=== PATIENT | female | born 1995 | race Caucasian/White ===

== ENCOUNTER 2019-10-30 06:35 | Inpatient (IN) ==
[2019-10-30] MEDS ORDERED: D5 1/2 NS 1000 ML 1,000 ML IV ONE (06:40)
[2019-10-30] MEDS ORDERED: BETADINE SOLN ONE (06:40)
[2019-10-30] MEDS ORDERED: PITOCIN ONE ×2 (06:40→13:45)
[2019-10-30] MEDS ORDERED: D5 1/2 NS 1L W PITOCIN 20 UNITS/L 20 UNITS/1,000 ML BAG IV ONE (06:41)
[2019-10-30] MEDS ORDERED: D5LR 1L W PITOCIN 10 UNITS/L 10 UNITS/1,000 ML BAG IV ONE (06:41)
[2019-10-30] MEDS ORDERED: MORPHINE SULFATE INJ 2 MG INJ IVP PRN (07:29)
[2019-10-30] MEDS ORDERED: REGLAN INJ 10 MG VIAL IVP PRN ×3 (07:29→15:05)
[2019-10-30] MEDS ORDERED: D5LR 1L W PITOCIN 10 UNITS/L 10 UNITS/1,000 ML BAG IV PRN (07:29)
[2019-10-30] MEDS ORDERED: PITOCIN IVP ONE (07:29)
[2019-10-30] MEDS ORDERED: PHENERGAN INJ 25 MG IM PRN ×3 (07:29→17:25)
[2019-10-30] MEDS ORDERED: STADOL INJ IVP PRN (07:34)
[2019-10-30] MEDS ORDERED: D5 1/2 NS 1000 ML 1,000 ML IV SCH (08:00)
[2019-10-30] MEDS ORDERED: VERSED ONE (10:00)
[2019-10-30] MEDS ORDERED: DILAUDID INJ ONE (13:20)
[2019-10-30] MEDS ORDERED: ANCEF 1 GRAM IV PREMIX* 1 G/50 ML BAG IV ONE (13:24)
[2019-10-30] MEDS ORDERED: LR 1000 ML IV 1,000 ML IV ONE ×2 (13:43→21:52)
[2019-10-30] MEDS ORDERED: EPHEDRINE SULFATE INJ ONE (13:45)
[2019-10-30] MEDS ORDERED: HEMABATE IM ONE (14:18)
[2019-10-30] MEDS ORDERED: BENADRYL INJ 50 MG VIAL IVP PRN ×2 (15:03→15:05)
[2019-10-30] MEDS ORDERED: ZOFRAN INJ 4 MG VIAL IVP PRN ×3 (15:03→21:31)
[2019-10-30] MEDS ORDERED: DILAUDID INJ IVP PRN (15:03)
[2019-10-30] MEDS ORDERED: NARCAN INJ IVP PRN (15:05)
[2019-10-30] MEDS ORDERED: PERCOCET TAB 5/325 MG PO PRN (15:05)
[2019-10-30] MEDS ORDERED: TORADOL 30 MG VIAL IVP PRN (15:05)
[2019-10-30] MEDS ORDERED: MYLICON TAB 80 MG CHEW PO PRN (15:15)
[2019-10-30] MEDS: TORADOL 30 MG VIAL IVP SCH ×2 (16:14→21:45)
[2019-10-30] MEDS ORDERED: PHENERGAN INJ 25 MG IM ONE (17:24)
[2019-10-31 06:54] LABS: HEMOGLOBIN 8.4 g/dL (12.0-16.0)
[2019-10-31] MEDS: MOTRIN TAB 800 MG PO PRN ×2 (07:30→15:30)
--- NOTE | 2019-10-31 09:23 | NOTE.PROBC ---
Progress Note OB-C/S Subjective Data Subjective: No complaints, decreased lochia. Tolerating regular diet. No N/V. Ambulating well. Falcon draining well. Pain under good control with toradol. Objective Data Result Diagrams: 10/31/19 05:35 Objective Data: CV= RRR no MRG Lungs=CTA Bilaterally Abd=(+) BS, soft, ND, appropriately tender near incision. Bandage removed. Incision clean/dry/intact, no erythema, no bleeding, no discharge. Dermabond/Stitches intact. Fundus firm/NT/ at { } cm below umbilicus. Ext= No edema, NT, No Cords. Graduated Compression Stockings/Sequential Compression Devices Bilaterally. Assessment Assessment: routine postop care Plan (1) delivery, delivered, current hospitalization: Plan: routine postop care
[2019-10-31] MEDS: PRENATAL PLUS PO SCH (09:30)
[2019-10-31] MEDS ORDERED: TORADOL 30 MG VIAL IVP PRN (15:18)
[2019-11-01] MEDS: MOTRIN TAB 800 MG PO PRN (05:30)
[2019-11-01] MEDS: PRENATAL PLUS PO SCH (08:07)
--- NOTE | 2019-11-01 08:13 | NOTE.PROBC ---
Progress Note OB-C/S Subjective Data Subjective: No complaints, decreased lochia. Tolerating regular diet. No N/V. Ambulating well. Falcon draining well. Pain under good control with ibuprofen. Objective Data Result Diagrams: 10/31/19 05:35 Objective Data: CV= RRR no MRG Lungs=CTA Bilaterally Abd=(+) BS, soft, ND, appropriately tender near incision. Bandage removed. Incision clean/dry/intact, no erythema, no bleeding, no discharge. Dermabond/St itches intact. Fundus firm/NT/ at { } cm below umbilicus. Ext= No edema, NT, No Cords. Graduated Compression Stockings/Sequential Compression Devices Bilaterally. Assessment Assessment: postop doing well requesting to go home Plan (1) delivery, delivered, current hospitalization: Plan: D/C home. summary dictated
[2019-11-01 12:10] VITALS: BP 123/67
== END 2019-11-01 14:25 | disposition home or self-care (01) | DRG 788 ==
LOC: LD 06:35 → MED/SURG 15:42
PROVIDERS: ADMIT Obstetrics & Gynecology; ATTEND Obstetrics & Gynecology
DX: O32.9XX0 Maternal care for malpresentation of fetus, unspecified, not applicable or unspecified; O32.4XX0 Maternal care for high head at term, not applicable or unspecified; Z37.0 Single live birth; Z3A.39 39 weeks gestation of pregnancy